=== PATIENT | female | born 1970 | race Caucasian/White ===

== ENCOUNTER 2022-12-04 08:29 | Day surgery (SDC) | payer BC ==
[~2022-12-04] VITALS: Ht 162.6 cm; Wt 72.5 kg
[~2022-12-04 08:29] MED LIST: Crutch1 EACH MISC
[2022-12-04] MEDS ORDERED: Premarin0.3 MG (08:58)
[2022-12-04] MEDS ORDERED: TESTOSTERONE60 GM (08:58)
[2022-12-04] MEDS ORDERED: PROG100 (08:58)
== END 2022-12-04 10:49 | disposition home or self-care (01) ==
LOC: ORSCSDS 08:29
PROVIDERS: Internal Medicine Gastroenterology
PROC: 0DJD8ZZ Inspection of Lower Intestinal Tract, Via Natural or Artificial Opening Endoscopic (ICD-10-PCS; principal; 2022-12-04 09:45)
DX: Z12.11 Encounter for screening for malignant neoplasm of colon (principal); K57.30 Diverticulosis of large intestine without perforation or abscess without bleeding; Z79.899 Other long term (current) drug therapy
CPT/HCPCS: J2704; J7120